=== PATIENT | female | born 1990 | race African-American/Black ===

== ENCOUNTER 2017-02-27 10:08 | Observation (INO) ==
[2017-02-27 11:01] LABS: MANUAL DIFF NEEDED? NO
[2017-02-27 11:03] LABS: BASO% 0.7 % (0.0-0.8); EOS# 0.08 X1000 (0.0-0.7); EOS% 1.4 % (0.0-10.0); HEMATOCRIT 35.1 % (37.0-47.0); HEMOGLOBIN 11.2 g/dL (12.0-16.0); IMM GRAN# 0.01 X1000 (0.0-0.04); IMM GRAN% 0.2 % (0.0-0.5); LYMPH# 1.12 X1000 (1.2-3.4); LYMPH% 19.4 % (20.5-51.1); MCH 27.1 PG (27-31); MCHC 31.9 g/dL (33-37); MCV 84.8 FL (81-99); MONO# 0.33 X1000 (0.11-0.59); MONO% 5.7 % (1.7-9.3); MPV 9.4 FL (7.4-10.4); NEUT% 72.6 % (42.2-75.2); PLT 332 X1000 (130-400); RBC 4.14 XMIL (4.2-5.4)
[2017-02-27 11:54] LABS: AGAP 13; ALBUMIN 3.3 g/dL (3.5-5.0); ALKALINE PHOSPHATASE 83 U/L (32-104); BUN 9 mg/dL (8-22); CALCIUM 8.5 mg/dL (8.8-10.2); CHLORIDE 105 mmol/L (98-107); COSMO 278; GOT 19 U/L (10-30); GPT 19 U/L (10-36); POTASSIUM 3.5 mmol/L (3.5-5.1); SODIUM 140 mmol/L (136-145); TCO2 22 mmol/L (25-35); TOTAL PROTEIN 6.5 g/dL (6.3-8.3)
--- NOTE | 2017-02-27 13:00 | Diag Imaging Result Doc PS360 ---
CT ABD/PELVIS/PULM ARTERIES - 02/27/2017 INDICATION: CP and Abd pain. S/p X 1 week ago TECHNIQUE: A CT dose reduction protocol was used. COMPARISON: None FINDINGS: The lung bases are clear and the heart size is normal. There is some trace perihepatic free fluid. Trace free fluid in the pelvis. There is some subcutaneous and muscle wall edema at the pelvic incision site. The uterus is still somewhat enlarged with some trace air in the endometrium. No large intrauterine masses or fluid collections. No bowel obstruction or inflammation. Perhaps slight constipation. The abdominal organs are normal. Bones are intact. IMPRESSION: No specific complication. There is some trace abdominal fluid. Perhaps mild constipation. Electronically signed by Eric Najera 02/27/2017 12:57 PM
[2017-02-27] MEDS ORDERED: NORCO-10 PO ONE (13:21)
--- NOTE | 2017-02-27 13:45 | Diag Imaging Result Doc PS360 ---
FLAT/UPRIGHT ABD/1 VIEW CHEST - 02/27/2017 INDICATION: CP, s/p X 1 week ago TECHNIQUE: Three views COMPARISON: 06/28/2015 FINDINGS: The chest is clear. There is moderate constipation. No bowel obstruction or free air. Degeneration of the sacroiliac joints. IMPRESSION: Constipation. Otherwise no acute disease. Electronically signed by Eric Najera 02/27/2017 1:43 PM
--- NOTE | 2017-02-27 13:46 | Diag Imaging Result Doc PS360 ---
CT ABD/PELVIS WITH CONTRAST- 02/27/2017 INDICATION: CP and Abd pain. S/p X 1 week ago TECHNIQUE: A CT dose reduction protocol was used. COMPARISON: None FINDINGS: The lung bases are clear and the heart size is normal. There is some trace perihepatic free fluid. Trace free fluid in the pelvis. There is some subcutaneous and muscle wall edema at the pelvic incision site. The uterus is still somewhat enlarged with some trace air in the endometrium. No large intrauterine masses or fluid collections. No bowel obstruction or inflammation. Perhaps slight constipation. The abdominal organs are normal. Bones are intact. IMPRESSION: No specific complication. There is some trace abdominal fluid. Perhaps mild constipation. Electronically signed by Eric Najera 02/27/2017 1:43 PM
[2017-02-27] MEDS ORDERED: LASIX IV ONE (13:49)
[2017-02-27 13:53] LABS: BILIRUBIN URINE NEGATIVE (NEGATIVE); BLOOD URINE 4+ (NEGATIVE); CLARITY CLEAR (CLEAR); COLOR YELLOW; GLUCOSE URINE NEGATIVE (NEGATIVE); LEUKOCYTES URINE 1+ (NEGATIVE); NITRITE URINE NEGATIVE (NEGATIVE); PROTEIN URINE 1+(30 mg/dL) mg/dL (NEGATIVE); SP GRAVITY URINE 1.005; UROBILINOGEN URINE NORMAL
[2017-02-27] MEDS ORDERED: ALDOMET PO ONE (13:56)
[2017-02-27 14:02] LABS: URINE CAST NONE SEEN /LPF; URINE CRYSTAL NONE SEEN /HPF; URINE CULTURE PL NEEDED? YES; URINE EPITHELIAL CELLS >10 /HPF (<10); URINE RBC <10 /HPF (<10)
[2017-02-27 14:03] LABS: URINE SOURCE CLEAN CATCH
--- NOTE | 2017-02-27 14:08 | Extremity Venous Study ---
Venous U/S Left Arm - 02/27/2017 INDICATION: LUE pain after IV access TECHNIQUE: Left upper extremity venous Doppler ultrasound COMPARISON: None FINDINGS: There is superficial venous thrombosis of the left cephalic vein in the forearm. The deep veins of the left upper extremity are normal. No abnormal mass or fluid collection. IMPRESSION: Superficial venous thrombosis of the left cephalic vein in the forearm. Electronically signed by Eric Najera 02/27/2017 2:06 PM
--- NOTE | 2017-02-27 14:12 | PROVIDER DOCUMENTATION ---
This chart was entered by Radha Joyner Scribe, acting as scribe for Myrna Lunsford MD. HPI-General Adult - General Chief Complaint: Complaint Stated Complaint: "BLOOD PRESSURE ISSUES/SWELLING" Time Seen by Provider: 02/27/17 10:20 Source: patient Allergies/Adverse Reactions: Patient Allergies Allergy/AdvReac Type Severity Reaction Status Date / Time No Known Allergies Allergy Verified 10/29/15 14:02 Home Medications: Home Medication List Medication Instructions Recorded Confirmed Last Taken Type Ciproflox/Dexameth Otic Susp 2 drop BOTH EARS BID #1 bottle 07/15/16 Unknown Rx [Ciprodex Otic Suspension] Cefuroxime Axetil [Cefuroxime] 500 mg PO BID 02/27/17 02/27/17 Unknown History Oxycodone HCl/Acetaminophen 5 mg PO 02/27/17 Unknown History [Oxycodone-Acetaminophen 10-325] - History of Present Illness -Gen Adult Nature of Presenting Problems: Pt is a 27 y/o F presents to the ED with multiple complaints. Pt states generalized swelling, HTN, bilateral hand pain, and mild chest pain. Pt states she is 2 weeks post . Pt states having infection in abdomen after a c section. Pt states was discharged from hospital Saturday after a 4 days stay. Pt denies nausea and vomiting. Pt state seeing Dr. Fine on Saturday. Location of Pain/Injury: reports: chest, hand(s) (bilateral) Pain Radiation: reports: no radiation Quality of Pain: reports: aching Severity: reports: mild Onset/Duration: reports: 3 days ago Timing: reports: still present Context/Activities at Onset: reports: light activity Modifying Factors: improves with: nothing Associated Symptoms: reports: chest pain, swelling/mass in abdomen (generalized swelling), other (bilateral hand pain and HTN). denies: anxiety, arm pain, back /neck pain, constipation, cough, diaphoresis, diarrhea, dizziness, EENT symptoms , fatigue, fever/chills, genitourinary problems, headaches, heartburn, joint pain, loss of appetite, malaise, muscle aches, sinus congestion/drainage, nausea , rash, seizure, shortness of breath, sensory/motor loss, pain with inspiration , syncope, vomiting, weakness, trouble walking Similar Symptoms Previously?: Yes (present for 3 days ) Recently seen or treated by another doctor?: Yes (seen Dr. Fine on Saturday ) Review of Systems - Adult - REVIEW OF SYSTEMS - ADULT Constitutional: reports: no symptoms reported Eyes: reports: no symptoms reported Ears, Nose, Mouth & Throat: reports: no symptoms reported Cardiovascular: reports: chest pain. denies: heart murmur, irregular heart rate Respiratory: reports: no symptoms reported Gastrointestinal: reports: no symptoms reported Genitourinary: reports: no symptoms reported Musculoskeletal: reports: other (bilateral hand pain). denies: back pain, neck pain Integumentary: reports: other (generalized swelling). denies: hives, itching, rash Neurological: reports: no symptoms reported Psychiatric: reports: no symptoms reported Endocrine: reports: no symptoms reported Hematologic/Lymphatic: reports: no symptoms reported Allergic/Immunologic: reports: no symptoms reported All Other Systems: Reviewed and Negative Past History - Adult - PAST MEDICAL HISTORY-ADULT Review of Records: reports: Nursing Assessment Review, Medications Reviewed, Social history reviewed & non-contributory. Major Childhood Illnesses: reports: denies history Cardiovascular: reports: denies history Respiratory: reports: asthma Gastrointestinal: reports: denies history Obstetrical/Gynecological: reports: denies history Genitourinary: reports: denies history Musculoskeletal: reports: denies history Neurological: reports: denies history Psychiatric: reports: anxiety Endocrine/Immune: reports: denies history Other Conditions: reports: denies history - PRIOR SURGERIES/PROCEDURES Surgical/Procedure History: reports: , other (wisdom teeth ) - IMMUNIZATION STATUS Childhood Immunizations: See Nurse Assessment Flu Vaccine: See Nurse Assessment - FAMILY HISTORY Family History: reviewed, not pertinent - SOCIAL HISTORY Smoking: cigarettes, less than 1 pack/day Provider spent 3-5 mins advising pt. on dangers of tobacco.: Discussed manners to quit use, and f/u contacts for add'l counseling. Substance Use: alcohol Alcohol Use Frequency: occasionally Number of drinks per typical drinking period:: 2 drinks Living Situation: family Physical Exam-General - PHYSICAL EXAM-ADULT Initial Vital Signs Reviewed: Yes - CONSTITUTIONAL General Appearance: appears well, alert, no apparent distress. negative: lethargic, slow to respond - EYES Eyes: PERRL/EOMI, pink conjunctivae. negative: pale conjunctivae, sunken eyes - HEAD, EARS, NOSE, MOUTH & THROAT HENMT: normal ENT inspection. negative: angioedema, hearing deficit - NECK Neck: normal inspection. negative: lymphadenopathy, tender lateral - RESPIRATORY Respiratory: chest non-tender, lungs clear, normal breath sounds. negative: crackles, rhonchi - CARDIOVASCULAR Cardiovascular: normal peripheral pulses, regular rate, rhythm. negative: tachycardia, systolic murmur - GASTROINTESTINAL (ABDOMEN) Abdominal Exam: normal bowel sounds, non tender, soft. negative: distended, rebound - LYMPHATIC Lymphatic: no adenopathy. negative: enlargement, streaking - MUSCULOSKELETAL Back Exam: normal inspection, no CVA tenderness, no vertebral tenderness. negative: ecchymosis, swelling Extremity: normal range of motion, normal inspection. negative: deformity, erythema, swelling - SKIN Integumentary: normal color, normal turgor, warm/dry. negative: decubitus, ecchymosis, erythema, rash - NEUROLOGIC Neurologic: grossly normal. negative: aphasia, facial droop - PSYCHIATRIC Psych/Mental Status: normal mood/affect, oriented x 3. negative: paranoid, tearful Progress - PLAN OF CARE/RESULTS Progress/Plan/Lab Results: Vital Signs - 8 hr 02/27/17 10:13 Temperature 98 F Pulse Rate 81 Respiratory Rate 18 Blood Pressure 167/92 O2 Sat by Pulse Oximetry 98 Orders Category Date Time Status CT ABD/PELVIS/PULM ARTERIES [CT] Stat Exams 02/27/17 10:47 Ordered flat [FLAT/UPRIGHT ABD/1 VIEW CHEST] [RAD] Stat Exams 02/27/17 10:43 Ordered CBC WITH ELECTRONIC DIFF [HEME] Stat Lab 02/27/17 10:18 Ordered COMPREHENSIVE METABOLIC PANEL [CHEM] Stat Lab 02/27/17 10:18 Ordered MAGNESIUM [CHEM] Stat Lab 02/27/17 10:43 Ordered PRO B-NATRIURETIC PEPTIDE Stat Lab 02/27/17 10:43 Ordered TROPONIN T Stat Lab 02/27/17 10:43 Ordered UA NIMS W/REFLEX CULT PL [URINALYSIS] Stat Lab 02/27/17 10:18 Ordered US [Venous U/S Left Arm] Stat Ther 02/27/17 10:47 Ordered Result Diagrams: 02/27/17 11:00 02/27/17 11:00 - REASSESSMENT Reassessment #1 Time Reassessed: 13:27 Status: unchanged (clinical dental technician missed the CT chest, did only the A+P part. When he was abck to do 2nd round CT scan for the chest, IV infiltrated and pt was upset and crying. I explained to pt and she calm down. Pt was moved to room 9 from room 4 for BP monitor. Awaiting for UA, and will call consumer relations specialist OB after UA is done.) Reassessment #2 Time Reassessed: 13:59 Status: improving (Dr. Jensen agree to admit and consult Dr. Hauser. Dr. Jensen concerns for Cardiomyopathy, Suggested and Lasix and BP meds. Pt is breast feeding. Dr. Hauser will take over the BP meds order.) Reassessment #4 Time Reassessed: 14:09 Status: other (Reports she is the only one at home can take care of her 3 babies and she has to pick her kids up from daycares. I warned her the severity of her situations and how much all of our 3 doctors concerned. Pt called all over of her friends, but no body can help her. Refused to call social sciences lecturer and she promised sh will be RTED in one hour. She signed AMA with knowing the resk she is taking - possible cardiomyopathy.) - XRAY 1 XRAY Study: Chest, Abdomen Impression: Abnormal XRAY Interpretation: constipation. otherwise no acute disease - CT/MRI 1 CT Study: Abdomen, Pelvis Impression: Abnormal (no specific complication. there is some trace abdominal fluid. perhaps mild constipation) - CONSULTS/PCP/HOSPITALIST Notification #1 *Consult/PCP/Hospitalist*: Dr. Jensen Time Discussed: 13:46 (Dr. Jensen will consult on Pt ) Reason/Comments: Dr. Lunsford consulted with Dr. Jensen about Pt Consult Disposition: Admit, other #2 Consult: Dr. Hauser Time Discussed: 13:52 (Hospitalist accepted admit ) Reason/Comments: Dr. Lunsford consulted with Dr. Hauser about Pt Consult Disposition: other (Dr. Hauser will be the organizational consultant) Departure - Departure Date of Disposition Decision: 02/27/17 Time of Disposition Decision: 14:02 DIAGNOSIS: Hypertension, Edema, complication Disposition: AGAINST MEDICAL ADVICE 07 Certified Medical Emergency: Emergent Condition: Stable Referrals and Follow-Ups: Francois Fine MD [Primary Care Provider] - - Critical Care Note This patient required my direct & personal management of CC.: Yes Total Time (mins): 45 Critical Care Statement: This patient required my direct personal management to treat or rule out processes, the absence of which, could potentiallly result in sudden, clinically significant life or limb threatening deterioration. Attestation - Physician/ ROSA Attestation Patient care was provided by Advanced Practice Provider:: No The physician spent face to face time with patient:: Yes Advanced Practice Provider documentation review:: Supervising physician onsite and consulted in the evaluation and care of this patient. The physician did have a face to face encounter with the patient. This chart was documented by the indicated scribe, (Radha Joyner Scribe) and accurately reflects the services I performed and decisions made by me, Myrna Lunsford MD, as attested by the provider's signature.
[2017-02-27] MEDS ORDERED: ROCEPHIN 1 GM in NS 50 ML IV ONE (16:55)
[2017-02-27] MEDS ORDERED: NORCO-7.5 PO PRN (19:46)
[2017-02-27] MEDS ORDERED: AMBIEN PO PRN (19:46)
[2017-02-27] MEDS ORDERED: MOTRIN PO PRN (19:46)
[2017-02-27] MEDS ORDERED: SALINE LOCK IV FLUID XX ONE (19:46)
--- NOTE | 2017-02-27 20:31 | HISTORY AND PHYSICAL ---
PHYSICIAN: Heriberto Jensen MD. DIAGNOSIS: hypertension. SUMMARY: Lenore Nails is a 27-year-old, now 4, para 3-0-1-3. She underwent a repeat C- section and tubal sterilization at 38 weeks gestation. This was on February 20. Her indications for previous , gestational diabetes of which the patient was largely noncompliant with treatment, and she desired tubal sterilization. She went home 4 days after delivery. She states that her blood pressures were elevated in the hospital. She was not started on antihypertensives. She states there was some concern about an infection in the hospital and she was sent home on antibiotics. She was seen in the office on 02/[address] Fine. At that time, her blood pressure was 158/100. He did not start antihypertensives. She was noted to be edematous. He did not start diuretic therapy. She came into the emergency room today complaining of swelling all over. She was also having some chest pains. As part of her workup, she had an hemoglobin and hematocrit performed which the hemoglobin was 11.2, hematocrit 35.1 and white count was 5.76, platelet count was 332,000. Comprehensive metabolic profile was negative. Her urinalysis did show 1+ protein, 4+ bacteria, 4+ blood, but this was a voided specimen, so I do not have much way of really evaluating a urinalysis. A flat plate and upright of abdomen showed constipation. She had an abdominal and pelvic CT which did show that the lung bases were clear and a normal heart size. Vascular studies were performed. There was no DVT. She did have a superficial venous thrombosis in the left cephalic vein in her forearm. In the emergency room her blood pressures were elevated. She did receive IV Lasix with a large diuresis. She was admitted for further evaluation. She does state that she feels much better after Lasix. PAST MEDICAL HISTORY: Patient has had a miscarriage. She has had 3 term deliveries. Otherwise, she has no chronic medical or surgical illnesses. ALLERGIES: None. PHYSICAL EXAMINATION: GENERAL: Shows an obese female in no acute distress. VITAL SIGNS: Her blood pressure is 165/77. She is afebrile. Heart rate is 84. Her weight is 221. In the office 2 days ago, it was 234. In the office 2 days ago, her blood pressure was 158/100. CARDIOVASCULAR: Regular rate and rhythm without murmurs, rubs, or gallops. PULMONARY: Clear. BACK: No CVAT. ABDOMEN: Shows some dependent edema in her pannus. Incision is clean and dry. She is having scant vaginal bleeding. Deep tendon reflexes are normal. There is trace pedal edema. IMPRESSION: 1. . 2. Hypertension. 3. Fluid overload. PLAN: The Lasix that she received in the emergency room appears to be curative. We have started Aldomet. She was given a gram of Rocephin in the emergency room. Urine culture is pending. However, I feel this urinalysis is more contamination than an actual UTI. We will watch her blood pressures overnight and hopefully be able to discharge her tomorrow on p.o. antihypertensive and Lasix and then to follow up in the office. cc: Heriberto Jensen MD
[2017-02-27] MEDS: CEFTIN PO SCH (21:35)
[2017-02-27] MEDS: ALDOMET PO SCH (21:35)
[2017-02-27 22:18] LABS: UR AMPHETAMINES QUAL PRESUMPTIVE POSITIVE (NONE DETECT)
[2017-02-27 22:19] LABS: UR BARBITUATES QUAL NONE DETECTED (NONE DETECT); UR BENZODIAZEPIN QUAL NONE DETECTED (NONE DETECT); UR CANNABINOIDS QUAL NONE DETECTED (NONE DETECT); UR COCAINE QUAL NONE DETECTED (NONE DETECT); UR MDMA QUAL NONE DETECTED (NONE DETECT); UR METHADONE QUAL NONE DETECTED (NONE DETECT); UR METHAMPHETAMINE QUAL NONE DETECTED (NONE DETECT); UR OPIATES QUAL NONE DETECTED (NONE DETECT); UR OXYCODONE QUAL PRESUMPTIVE POSITIVE (NONE DETECT); UR PCP QUAL NONE DETECTED (NONE DETECT); UR TCA QUAL NONE DETECTED (NONE DETECT)
[2017-02-28 06:09] LABS: MANUAL DIFF NEEDED? NO
[2017-02-28 06:21] VITALS: BP 131/83
[2017-02-28 06:27] LABS: BASO% 0.9 % (0.0-0.8); EOS# 0.14 X1000 (0.0-0.7); EOS% 2.5 % (0.0-10.0); HEMATOCRIT 35.8 % (37.0-47.0); HEMOGLOBIN 11.4 g/dL (12.0-16.0); IMM GRAN# 0.01 X1000 (0.0-0.04); IMM GRAN% 0.2 % (0.0-0.5); LYMPH# 1.84 X1000 (1.2-3.4); MCH 26.8 PG (27-31); MCHC 31.8 g/dL (33-37); MONO# 0.47 X1000 (0.11-0.59); MONO% 8.4 % (1.7-9.3); MPV 9.7 FL (7.4-10.4); PLT 323 X1000 (130-400); RBC 4.26 XMIL (4.2-5.4)
[2017-02-28 06:41] LABS: AGAP 12; ALBUMIN 3.2 g/dL (3.5-5.0); ALKALINE PHOSPHATASE 76 U/L (32-104); BUN 8 mg/dL (8-22); CALCIUM 8.2 mg/dL (8.8-10.2); CHLORIDE 106 mmol/L (98-107); COSMO 279; GOT 16 U/L (10-30); GPT 18 U/L (10-36); POTASSIUM 3.1 mmol/L (3.5-5.1); SODIUM 141 mmol/L (136-145); TCO2 24 mmol/L (25-35); TOTAL PROTEIN 6.4 g/dL (6.3-8.3)
[2017-02-28] MEDS ORDERED: LASIX PO SCH (09:00)
[2017-02-28] MEDS: CEFTIN PO SCH (09:23)
[2017-02-28] MEDS: ALDOMET PO SCH (09:23)
--- NOTE | 2017-02-28 11:05 | DISCHARGE SUMMARY ---
ADMISSION DATE: 02/27/2017 DISCHARGE DATE: 02/28/2017 ADMITTING DIAGNOSES: 1. . 2. Hypertension. 3. Edema. PRINCIPAL PROCEDURE: Diuretics. SUMMARY: Miguelina Nails is a 27-year-old 4, para 3-0-1-3, who underwent a section delivery last week. She was admitted to the hospital with hypertension and edema. She responded very well to IV Lasix and she stated she felt better almost immediately. She was also started on Aldomet. Today her blood pressures are better and her edema is much improved. Cardiac and pulmonary examination is normal. Incision was clean and dry. We will let Ms. Nails go home today. She will followup in the office the 1st part of next week. She will continue her pain medications that she was prescribed at discharge. In addition, we will have her on Lasix 20 mg each day for the next 5 days and she will be on Aldomet 250 mg twice a day. She will call if there is any other complications or problems. cc: Heriberto Jensen MD
== END 2017-02-28 10:13 | disposition home or self-care (01) ==
LOC: P.MEDSURG 10:08 → P.ED 10:08 → P.MEDSURG 18:21
PROVIDERS: ADMIT Obstetrics & Gynecology; ATTEND Obstetrics & Gynecology